=== PATIENT | male | born 1995 | race Caucasian/White ===

== ENCOUNTER 2016-05-20 17:19 | Emergency (ER) | payer SELFPAY ==
[~2016-05-20] VITALS: Ht 180.3 cm; Wt 90.7 kg
[2016-05-20 17:32] VITALS: BP 121/71
[2016-05-20] MEDS ORDERED: DIPHTH,PERTUSS(ACELL),TET TOX 0.5 ML DISP.SYRIN. VAX IM ONE (17:45)
[2016-05-20] MEDS ORDERED: LIDOCAINE 1% / SOD BICARB 8.4% 20 ML VIAL. IJ ONE (17:45)
--- NOTE | 2016-05-20 18:38 | PHYS DOC ---
Past Medical History Past Medical History: No Pertinent History Past Surgical History: No Surgical History Alcohol Use: None Drug Use: None Adult General Chief Complaint Chief Complaint: LACERATION/AVULSION HPI HPI Patient is a 20 year old man who presents with a right hand laceration, patient states he was moving a TV that broke and fell on his right hand. Review of Systems Review of Systems Constitutional: Denies fever or chills [] Musculoskeletal: Denies back pain or joint pain [] Integument: right hand laceration Neurologic: Denies headache, focal weakness or sensory changes [] Endocrine: Denies polyuria or polydipsia [] Current Medications Current Medications Current Medications Medications (Trade) Dose Ordered Sig/Adolfo Start Time Stop Time Status Last Admin Dose Admin Diphtheria/ Tetanus/Acell Pertussis (Boostrix) 0.5 ml ONCE ONCE 05/20/16 17:45 05/20/16 17:46 DC Lidocaine/Sodium Bicarbonate (Buffered Lidocaine 1%) 20 ml 1X ONCE 05/20/16 17:45 05/20/16 17:46 DC 05/20/16 17:45 20 ML Allergies Allergies Allergies Coded Allergies Type Severity Reaction Last Updated Verified No Known Drug Allergies 05/20/16 No Physical Exam Physical Exam Constitutional: Well developed, well nourished, no acute distress, non-toxic appearance. [] Skin:Right fifth knuckle with a laceration approximately 2 cm long, this no tendon involvement. Full range of motion to the right hand and fingers. The patient able to flex and extend the right fifth finger with no difficulties. Tenderness on palpation of the right fifth knuckle. +2 right radial pulse. Adequate ulna radial and media sensation to the right hand. Cap refill less than 2 seconds the right hand. Back: No tenderness, no CVA tenderness. [] Extremities: No tenderness, no cyanosis, no clubbing, ROM intact, no edema. [] Neurologic: Alert and oriented X 3, normal motor function, normal sensory function, no focal deficits noted. [] Psychologic: Affect normal, judgement normal, mood normal. [] Current Patient Data Vital Signs Vital Signs Date Time Temp Pulse Resp B/P Pulse Ox O2 Delivery O2 Flow Rate FiO2 05/20/16 17:32 98.5 103 20 96 Room Air 98.5 EKG EKG [] Radiology/Procedures Radiology/Procedures Indication: Right fifth knuckle laceration Procedure: The patient was placed in the appropriate position and anesthesia around the laceration was 1% buffered lidocaine. The laceration was cleaned with 100 ML of normal saline and Betadine. The laceration was closed with 4 interrupted sutures using 4. 0 Ethilon. The wound was covered with dressing. Total repaired wound length: Approximately 2 cm long Other Items:none The patient tolerated the procedure well Complications: none Course & Med Decision Making Course & Med Decision Making Pertinent Labs and Imaging studies reviewed. (See chart for details) Patient is in the ED with right hand laceration after a TV fell on it. Right hand x-ray interpreted by Dr. Cisneros is negative for any acute findings. Tetanus is up-to-date. Laceration was closed as noted in procedures. Neosporin recommended to the area. Follow-up with the ED in 7-10 days for suture removal. Provided return precautions. Discharged in stable condition. Dragon Disclaimer Dragon Disclaimer This electronic medical record was generated, in whole or in part, using a voice recognition dictation system. Departure Departure Impression: Primary Impression: Laceration of right hand Additional Impression: Contusion of right hand Disposition: 01 HOME, SELF-CARE Condition: STABLE Referrals: NO PCP (PCP) Follow-up with the emergency room or your own doctor in 7-10 days for suture removal Patient Instructions: Laceration Care, Adult Additional Instructions: You were seen for right hand laceration. Keep the laceration site clean and dry. You can shower but do not soak in water. Apply Neosporin to the laceration site twice a day. Monitor the area for signs and symptoms of infection including increased redness warmth or odor drainage from the area and return to the ED if they occur. Take Tylenol or Motrin as needed for pain Problem Qualifiers Primary Impression: Laceration of right hand Encounter type: initial encounter Qualified Code: S61.411A - Laceration without foreign body of right hand, initial encounter Additional Impression: Contusion of right hand Encounter type: initial encounter Qualified Code: S60.221A - Contusion of right hand, initial encounter SINDHU DREW APRN May 20, 2016 18:38
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
== END 2016-05-20 18:54 | disposition home or self-care (01) ==
LOC: ER 17:19
DX: S61.411A Laceration without foreign body of right hand, initial encounter (principal); W20.8XXA Other cause of strike by thrown, projected or falling object, initial encounter; Y93.89 Activity, other specified; Y92.89 Other specified places as the place of occurrence of the external cause; Y99.8 Other external cause status
CPT/HCPCS: 12001; 73130; 99284-25

== ENCOUNTER 2016-06-05 15:09 | Emergency (ER) | payer SELFPAY ==
[~2016-06-05] VITALS: Ht 180.3 cm; Wt 99.8 kg
[2016-06-05 15:26] VITALS: BP 155/69
--- NOTE | 2016-06-05 15:29 | PHYS DOC ---
Past Medical History Past Medical History: No Pertinent History Past Surgical History: No Surgical History Alcohol Use: None Drug Use: None Adult General Chief Complaint Chief Complaint: SUTURE/STAPLE REMOVAL [facility] Patient is a 20 year old male who presents for suture removal of dorsal right hand. Denies problems or concerns Review of Systems Review of Systems Constitutional: Denies fever or chills Eyes: Denies change in visual acuity, redness, or eye pain HENT: Denies nasal congestion or sore throat Respiratory: Denies cough or shortness of breath Cardiovascular: No additional information not addressed in HPI GI: Denies abdominal pain, nausea, vomiting, bloody stools or diarrhea : Denies dysuria or hematuria Musculoskeletal: Denies back pain or joint pain Integument: Sutures right hand Neurologic: Denies headache, focal weakness or sensory changes [] Endocrine: Denies polyuria or polydipsia [] Allergies Allergies Allergies Coded Allergies Type Severity Reaction Last Updated Verified No Known Drug Allergies 05/20/16 No Physical Exam Physical Exam Constitutional: Well developed, well nourished, no acute distress, non-toxic appearance. HENT: Normocephalic, atraumatic, bilateral external ears normal, oropharynx moist, no oral exudates, nose normal. Eyes: PERRLA, EOMI, conjunctiva normal, no discharge. Neck: Normal range of motion, no tenderness, supple, no stridor. Cardiovascular:Heart rate regular rhythm, no murmur Lungs & Thorax: Bilateral breath sounds clear to auscultation Abdomen: Bowel sounds normal, soft, no tenderness, no masses, no pulsatile masses. Skin: Warm, dry, no erythema, no rash. Sutures right hand Back: No tenderness, no CVA tenderness. Extremities: No tenderness, no cyanosis, no clubbing, ROM intact, no edema. Neurologic: Alert and oriented X 3, normal motor function, normal sensory function, no focal deficits noted. [] Psychologic: Affect normal, judgement normal, mood normal. [] Current Patient Data Vital Signs Vital Signs Date Time Temp Pulse Resp B/P Pulse Ox O2 Delivery O2 Flow Rate FiO2 06/05/16 15:26 98.6 71 14 99 Room Air 98.6 EKG EKG [] Radiology/Procedures Radiology/Procedures 5 sutures removed without difficulty. patient tolerated well Impressions: 1. Suture removal Course & Med Decision Making Course & Med Decision Making Pertinent Labs and Imaging studies reviewed. (See chart for details) [] Dragon Disclaimer Dragon Disclaimer This electronic medical record was generated, in whole or in part, using a voice recognition dictation system. Departure Departure Impression: Primary Impression: Visit for suture removal Disposition: HOME, SELF-CARE Condition: STABLE Referrals: NO PCP (PCP) Patient Instructions: Suture Removal-Brief Additional Instructions: Keep area clean and dry and apply Neosporin twice daily. Return if problems or concerns. Follow up with primary doctor in 1-2 days NONA HOROWITZ APRN Jun 05, 2016 15:29
== END 2016-06-05 15:54 | disposition home or self-care (01) ==
LOC: ER 15:09
DX: S61.411D Laceration without foreign body of right hand, subsequent encounter (principal); W45.8XXA Other foreign body or object entering through skin, initial encounter; Y93.89 Activity, other specified; Y92.89 Other specified places as the place of occurrence of the external cause; Y99.8 Other external cause status
CPT/HCPCS: 99281

== ENCOUNTER 2016-11-10 21:15 | Emergency (ER) | payer SELFPAY ==
[~2016-11-10] VITALS: Ht 180.3 cm; Wt 113.4 kg
[2016-11-10] MEDS ORDERED: ASPIRIN CHEWABLE 81 MG TABLET. PO ONE (22:00)
[2016-11-10 22:03] LABS: BASO % 0 % (0-3); EOS % 0 % (0-3); HEMATOCRIT 46.4 % (39.0-53.0); HEMOGLOBIN 16.1 g/dL (13.0-17.5); LYMPH # 1.8 x10^3/uL (1.0-4.8); LYMPH % 18 % (24-48); MEAN CORPUSCULAR HEMOGLOBIN 30 pg (25-35); MEAN CORPUSCULAR HGB CONC 35 g/dL (31-37); MEAN CORPUSCULAR VOLUME 87 fL (79-100); MONO % 9 % (0-9); NEUT % 72 % (31-73); PLATELET COUNT 288 x10^3/uL (140-400); RED BLOOD COUNT 5.33 x10^6/uL (4.30-5.70); RED CELL DISTRIBUTION WIDTH 14.3 % (11.5-14.5); WHITE BLOOD COUNT 9.9 x10^3/uL (4.0-11.0)
[2016-11-10 22:29] LABS: CALCIUM 9.6 mg/dL (8.5-10.1); CREATININE 1.3 mg/dL (0.7-1.3); GFR 71.1; POTASSIUM 3.6 mmol/L (3.5-5.1)
[2016-11-10 22:35] LABS: ALBUMIN 4.5 g/dL (3.4-5.0); DIRECT BILIRUBIN 0.1 mg/dL (0.0-0.2); TOTAL BILIRUBIN 0.8 mg/dL (0.2-1.0); TOTAL PROTEIN 8.1 g/dL (6.4-8.2)
[2016-11-10] MEDS ORDERED: CONTRAST GIVEN MC PRN (22:45)
[2016-11-10] MEDS ORDERED: IOHEXOL 300 MG/ML 75 ML VIAL IV ONE (23:00)
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
[2016-11-11 00:07] VITALS: BP 119/65
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
== END 2016-11-11 00:33 | disposition home or self-care (01) ==
LOC: ER 21:15
DX: R10.13 Epigastric pain (principal); V43.52XA Car driver injured in collision with other type car in traffic accident, initial encounter; Y93.89 Activity, other specified; Y99.8 Other external cause status; Y92.89 Other specified places as the place of occurrence of the external cause
CPT/HCPCS: 36415; 74177; 80048; 80076; 83690; 85027; 99285; Q9967